=== PATIENT | male | born 1950 | race African-American/Black ===

== ENCOUNTER 2016-10-23 22:32 | Emergency (ER) | payer OTHER ==
[~2016-10-23] VITALS: Ht 198.1 cm; Wt 120.0 kg
[~2016-10-23 22:32] MED LIST: DOXY100T PO; SULF-154 PO; Z.0.NO CURRENT MEDS
[2016-10-23 22:46] VITALS: BP 161/98; PULSE 64; RESP 18; O2SAT 96
[2016-10-23] MEDS ORDERED: SODIUM CHLORIDE 0.9% FLUSH 5 ML FLUSH IVF PRN (23:00)
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
[2016-10-23 23:45] LABS: AUTOMATED NEUTROPHIL # 2.8 TH/MM3 (1.8-7.7); BASOPHIL # 0.1 TH/MM3 (0-0.2); BASOPHIL % 0.8 % (0.0-2.0); EOSINOPHIL # 0.2 TH/MM3 (0-0.4); EOSINOPHIL % 3.8 % (0.0-4.0); HEMATOCRIT 38.8 % (39.0-51.0); HEMO FLAGS DIFF FINAL; LYMPH % 39.6 % (9.0-44.0); LYMPHOCYTE # 2.5 TH/MM3 (1.0-4.8); MEAN CELL VOLUME 77.8 FL (80.0-100.0); MEAN CORPUSCULAR HEMOGLOBIN 25.2 PG (27.0-34.0); MEAN CORPUSCULAR HGB CONC 32.4 % (32.0-36.0); MONO % 11.5 % (0.0-8.0); NEUT % 44.3 % (16.0-70.0); PLATELET COUNT 273 TH/MM3 (150-450); RED BLOOD COUNT 4.98 MIL/MM3 (4.50-5.90); RED CELL DISTRIBUTION WIDTH 14.6 % (11.6-17.2); WHITE BLOOD COUNT 6.2 TH/MM3 (4.0-11.0)
[2016-10-23 23:48] LABS: I-STAT POTASSIUM 3.8 MMOL/L (3.5-4.9); I-STAT SODIUM 141 MMOL/L (138-146)
[2016-10-24 00:05] LABS: APTT (PATIENT) 26.8 SEC (24.3-30.1); PROTHROMBIN TIME - PATIENT 11.4 SEC (9.8-11.6)
[2016-10-24 00:12] LABS: ALKALINE PHOSPHATASE 75 U/L (45-117); ALT (GPT) 26 U/L (12-78); ANION GAP 8 MEQ/L (5-15); AST (GOT) 19 U/L (15-37); BICARBONATE 24.6 MEQ/L (21.0-32.0); BLOOD UREA NITROGEN 20 MG/DL (7-18); CHLORIDE 109 MEQ/L (98-107); GLOMERULAR FILTRATION RATE 81 ML/MIN (>89); SODIUM (NA) 142 MEQ/L (136-145); TOTAL BILIRUBIN ADULT 0.4 MG/DL (0.2-1.0)
[2016-10-24] MEDS ORDERED: MORPHINE SULFATE 4 MG/ML INJ IV PUSH ONE (00:15)
[2016-10-24 00:17] LABS: POTASSIUM 3.8 MEQ/L (3.5-5.1)
[2016-10-24] MEDS ORDERED: IOHEXOL 350 MG/ML 10 ML VIAL (for RAD DIAG) IV ONE (00:48)
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
[2016-10-24] MEDS ORDERED: HYDR-3533 PO (02:12)
[2016-10-24] MEDS ORDERED: ROBA500T PO (02:12)
== END 2016-10-24 02:54 | disposition home or self-care (01) ==
LOC: NEPE 22:32
DX: S39.012A Strain of muscle, fascia and tendon of lower back, initial encounter (principal); M89.9 Disorder of bone, unspecified; V59.49XA Driver of pick-up truck or van injured in collision with other motor vehicles in traffic accident, initial encounter; Y93.89 Activity, other specified; Y92.410 Unspecified street and highway as the place of occurrence of the external cause
CPT/HCPCS: 70450; 71010; 71260; 72125; 72128; 72131; 72170; 74177; 80053; 82435; 82565; 82947; 84132; 84295; 84520; 85025; 85610; 85730; 86850; 86900; 86901; 96374; 99284; J2270; Q9967